=== PATIENT | female | born 1970 | race Caucasian/White ===

== ENCOUNTER 2019-02-04 18:44 | Inpatient (IN) ==
[2019-02-04] MEDS ORDERED: Ipratropium/Albuterol Neb 3 ML IH ONE (19:16)
[2019-02-04] MEDS ORDERED: methylPREDNISolone 125 MG/2 ML VIAL IVP ONE (19:16)
--- NOTE | 2019-02-04 19:25 | Emergency Department Note ---
Disposition Clinical Impression: Acute exacerbation of chronic obstructive airways disease, Ventricular tachycardia Disposition: Admitted As Inpatient Condition: Fair General Adult HPI - General Chief complaint: ED Shortness of Breath/Dyspnea Stated complaint: cough/CARLY Time Seen by Provider: 02/04/19 19:12 Source: patient Limitations: no limitations Nursing Notes Reviewed: Yes Vital Signs Reviewed: Yes - History of Present Illness Pain Scale: 8 - Related Data Home Medications Medication Instructions Recorded Confirmed Albuterol Sulfate [Albuterol 2 puff IH Q4HR 07/08/15 09/14/16 Inhaler] Alprazolam [Xanax] 1 mg PO TID 07/08/15 09/14/16 Gabapentin [Neurontin] 600 mg PO TID 07/08/15 09/14/16 Multivitamin [Flintstones] 1 tab PO QAM 07/08/15 09/14/16 Aclidinium [place] [Tudorza 1 puff IH BID 06/15/16 09/14/16 Pressair] Aspirin/Acetaminophen/Caffeine 1 tab PO BID PRN 06/15/16 09/14/16 [Excedrin Migraine Caplet] Fluticasone/Salmeterol [Advair Hfa 2 puff IH BID 06/15/16 09/14/16 115-21 Mcg Inhaler] Ipratropium/Albuterol Neb [Duoneb] 3 ml IH Q6HR 06/15/16 09/14/16 Nystatin Cream [Mycostatin Cream] 1 appl TP QID 06/15/16 09/14/16 lamoTRIgine [Lamictal] 150 mg PO BID 06/15/16 09/14/16 BuPROPion XL (24 HR) [Wellbutrin 300 mg PO QAM 09/14/16 09/14/16 Xl] L. Acidophilus/Pectin, [place] 1 cap PO QAM 09/14/16 09/14/16 [Acidophilus Probiotic Capsule] Magnesium Salicylate/Caffeine 1 tab PO BID 09/14/16 09/14/16 [Diurex Water Pills] Meloxicam [Mobic] 15 mg PO QAM 09/14/16 09/14/16 Previous Rx's Medication Instructions Recorded hydroCHLOROthiazide 12.5 mg PO DAILY #15 tablet 09/16/16 [Hydrochlorothiazide] Allergies Allergy/AdvReac Type Severity Reaction Status Date / Time No Known Allergies Allergy Verified 07/01/15 15:33 Past Medical History - Past Medical History Medical history: Reports: asthma, COPD, hyperlipidemia, other Surgical history: Reports: cholecystectomy, other Psychiatric history: Reports: anxiety, depression - Social History Smoking Status: Current every day smoker Smokeless Tobacco Status: No Alcohol use: Reports: none Drug use: Reports: none Physical Exam - General Limitations: no limitations General appearance: alert Course Vital Signs Temperature 100.5 F H 02/04/19 18:56 Pulse Rate 87 02/04/19 18:56 Respiratory Rate 18 02/04/19 18:56 Blood Pressure 144/77 02/04/19 18:56 O2 Sat by Pulse Oximetry 91 02/04/19 18:56 Temperature 100.9 F H 02/04/19 20:59 Pulse Rate 87 02/04/19 23:32 Respiratory Rate 30 02/04/19 23:32 Blood Pressure 112/49 02/04/19 23:32 O2 Sat by Pulse Oximetry 92 02/04/19 23:32 Oxygen Delivery Oxygen Delivery Nasal Cannula Medical Decision Making - Medical Records Medical records reviewed: Yes I reviewed the patient's medical records. - Lab Data Lab results reviewed: Yes I reviewed the patient's lab results. Result diagrams: 02/04/19 19:31 02/04/19 19:31 Lab Results 02/04/19 02/04/19 02/04/19 Range/Units 19:31 19:31 19:31 WBC 5.0 (4.3-11.1) K/mcL RBC 5.33 H (3.82-4.97) M/mcL Hgb 16.2 H (11.5-15.4) g/dL Hct 48.9 H (35.3-44.9) % MCV 91.7 (83.0-100.0) fL MCH 30.4 (28.0-33.3) pg MCHC 33.1 (31.6-35.5) g/dL RDW 14.5 (11.5-14.5) % Plt Count 189 (140-400) K/mcL MPV 9.9 (9.4-12.4) fL Immature Gran % 0.4 (0-4) % Seg Neutrophils % 66.3 % Lymphocytes % 22.1 % Monocytes % 10.8 % Eosinophils % 0.0 % Basophils % 0.4 % Neutrophils # 3.3 (1.6-8.9) K/mcL Lymphocytes # 1.1 (0.6-4.6) K/mcL Monocytes # 0.5 (0.0-1.3) K/mcL Eosinophils # 0.0 (0.0-0.6) K/mcL Basophils # 0.0 (0.0-0.2) K/mcL PT (9.4-12.1) Seconds INR APTT (26.0-36.0) Seconds Sodium 131 L (136-145) mEq/L Potassium 3.8 (3.5-5.1) mEq/L Chloride 99 (98-107) mEq/L Carbon Dioxide 23 (23-29) mEq/L BUN 8 (6-20) mg/dL Creatinine 0.77 (0.60-1.20) mg/dL Est GFR ( Amer) > 60 (> 60) Est GFR (Non-Af Amer) > 60 (> 60) BUN/Creatinine Ratio 10 (6-26) Glucose 111 H (70-105) mg/dL Calculated Osmolality 271 L (280-300) Lactic Acid 1.5 (0.5-2.2) mmol/L Calcium 8.5 L (8.6-10.3) mg/dL Troponin I < 0.03 (< 0.04) ng/mL B-Natriuretic Peptide (Less than 100) pg/mL TSH 1.796 (0.340-5.600) mcIU/mL Urine Color (Yellow) Urine Clarity (Clear) Urine pH (5.0-8.0) pH Units Ur Specific [place] (1.010-1.025) Urine Protein (Neg-Trace) mg/dL Urine Glucose (UA) (Normal) mg/dL Urine Ketones (Negative) mg/dL Urine Blood (Negative) Urine Nitrite (Negative) Urine Bilirubin (Negative) Urine Urobilinogen (Normal) mg/dL Ur Leukocyte Esterase (Negative) Urine Microscopic RBC (0-3) per hpf Urine Microscopic WBC (0-3) per hpf Ur Squamous Epith Cells (None-Few) per lpf Urine Bacteria (None-Few) per hpf Hyaline Casts (None-Few) per lpf Ur Culture Indicated? (NO) 02/04/19 02/04/19 02/04/19 Range/Units 19:31 19:31 22:35 WBC (4.3-11.1) K/mcL RBC (3.82-4.97) M/mcL Hgb (11.5-15.4) g/dL Hct (35.3-44.9) % MCV (83.0-100.0) fL MCH (28.0-33.3) pg MCHC (31.6-35.5) g/dL RDW (11.5-14.5) % Plt Count (140-400) K/mcL MPV (9.4-12.4) fL Immature Gran % (0-4) % Seg Neutrophils % % Lymphocytes % % Monocytes % % Eosinophils % % Basophils % % Neutrophils # (1.6-8.9) K/mcL Lymphocytes # (0.6-4.6) K/mcL Monocytes # (0.0-1.3) K/mcL Eosinophils # (0.0-0.6) K/mcL Basophils # (0.0-0.2) K/mcL PT 12.3 H (9.4-12.1) Seconds INR 1.1 APTT 33.3 (26.0-36.0) Seconds Sodium (136-145) mEq/L Potassium (3.5-5.1) mEq/L Chloride (98-107) mEq/L Carbon Dioxide (23-29) mEq/L BUN (6-20) mg/dL Creatinine (0.60-1.20) mg/dL Est GFR ( Amer) (> 60) Est GFR (Non-Af Amer) (> 60) BUN/Creatinine Ratio (6-26) Glucose (70-105) mg/dL Calculated Osmolality (280-300) Lactic Acid (0.5-2.2) mmol/L Calcium (8.6-10.3) mg/dL Troponin I (< 0.04) ng/mL B-Natriuretic Peptide 25 (Less than 100) pg/mL TSH (0.340-5.600) mcIU/mL Urine Color Yellow (Yellow) Urine Clarity Cloudy A (Clear) Urine pH 6.0 (5.0-8.0) pH Units Ur Specific [place] 1.010 (1.010-1.025) Urine Protein Negative (Neg-Trace) mg/dL Urine Glucose (UA) Normal (Normal) mg/dL Urine Ketones Negative (Negative) mg/dL Urine Blood Trace H (Negative) Urine Nitrite Positive A (Negative) Urine Bilirubin Negative (Negative) Urine Urobilinogen Normal (Normal) mg/dL Ur Leukocyte Esterase Negative (Negative) Urine Microscopic RBC 0-3 (0-3) per hpf Urine Microscopic WBC 3-5 H (0-3) per hpf Ur Squamous Epith Cells Many H (None-Few) per lpf Urine Bacteria Many H (None-Few) per hpf Hyaline Casts None Seen (None-Few) per lpf Ur Culture Indicated? NO. A (NO) - Radiology Data Radiology results reviewed: Yes I reviewed the patient's radiology results. Chest X-Ray 02/04/19 19:16 IMPRESSION: No acute abnormality visualized. D/ / Rk Pedersen MD / Rk Pedersen MD Interpreting Provider: Rk Pedersen MD - EKG Data EKG #1 EKG attestation: Yes I reviewed and interpreted this EKG. EKG results narrative: EKG shows normal sinus rhythm with ventricular rate of 91. No ST segment elevation or depression. No arrhythmia or ectopy. Critical Care Time Critical Care Time: Yes Total Critical Care Time: 45 Attestation: Critical care performed: Time is exclusive of separately billable procedures. Time includes: direct patient care, patient reassessment, coordination of patient care, interpretation of data (laboratory data, radiology data, and respiratory data), review of patient's medical records, medical consultation and documentation of patient care. Procedures included in critical care time: Procedures excluded from critical care time: Attestation Statement - Attestation Attestation: IJose MD, personally evaluated this patient and discussed their management with the resident physician. I reviewed the resident's note and agree with the documented findings, medical decision making, and plan of care. 48-year-old female presents to the emergency department with a complaint of increasing cough and shortness of breath for the past 2-3 days. Symptoms much worse today with subjective low-grade fever. She does complain of diffuse mid anterior wall chest pain with coughing or deep breathing. Small amount of white sputum. Patient is a smoker but has been unable to smoke for the past few days due to her breathing. She does have a history of COPD and uses inhalers at home. She also has a nebulizer. She does not have home oxygen. She admits to some vomiting and some diarrhea. No abdominal pain. No urinary symptoms. No GI bleed symptoms. On examination patient is a well-developed obese female in moderate respiratory distress. She is alert and oriented 3. There is no cyanosis or diaphoresis. Patient is hot to touch and temperature 102.3 at time of my exam. There is some tenderness palpation over the anterior chest wall. Breath sounds are decreased bilaterally with diffuse bilateral expiratory wheezes. Heart regular rate and rhythm. Abdomen soft and nontender with normal bowel sounds. EKG shows normal sinus rhythm with ventricular rate of 91. No ST segment elevation or depression. No arrhythmia or ectopy. Chest x-ray negative. Labs reviewed. While in the emergency department on the alarm security or surveillance monitor patient had an episode of ventricular tachycardia. This was true V. tach and was not artifact. There was a continuous run of 70 beats. Heart rate went up to 203. Patient was alert and responsive during this episode and he did not complain of any chest pain. Patient was given an amiodarone bolus and started on an amiodarone infusion. The hospitalist, Dr. Leigh, was consulted and accepted admission of the patient.
[2019-02-04] MEDS ORDERED: Ibuprofen 600 MG TABLET PO ONE (19:39)
[2019-02-04] MEDS ORDERED: 0.9 % Sodium Chloride 1,000 ML IVC ONE (19:40)
[2019-02-04 19:46] LABS: Basophils % 0.4 %; Hematocrit 48.9 % (35.3-44.9); Hemoglobin 16.2 g/dL (11.5-15.4); Immature Granulocytes % 0.4 % (0-4); Lymphocytes # 1.1 K/mcL (0.6-4.6); Lymphocytes % 22.1 %; Mean Corpuscular HGB Conc 33.1 g/dL (31.6-35.5); Mean Corpuscular Hemoglobin 30.4 pg (28.0-33.3); Mean Corpuscular Volume 91.7 fL (83.0-100.0); Mean Platelet Volume 9.9 fL (9.4-12.4); Monocytes # 0.5 K/mcL (0.0-1.3); Monocytes % 10.8 %; Neutrophils # 3.3 K/mcL (1.6-8.9); Platelet Count 189 K/mcL (140-400); Red Blood Count 5.33 M/mcL (3.82-4.97); Red Cell Distribution Width 14.5 % (11.5-14.5); Segmented Neutrophils % 66.3 %
[2019-02-04 20:04] LABS: BUN/Creatinine Ratio 10 (6-26); Blood Urea Nitrogen 8 mg/dL (6-20); Calcium 8.5 mg/dL (8.6-10.3); Carbon Dioxide 23 mEq/L (23-29); Chloride 99 mEq/L (98-107); Glucose 111 mg/dL (70-105); Osmolality,Calculated 271 (280-300); Potassium 3.8 mEq/L (3.5-5.1); Sodium 131 mEq/L (136-145); Troponin I < 0.03 ng/mL (< 0.04); eGFR For Non-African Americans > 60 (> 60)
--- NOTE | 2019-02-04 20:17 | Emergency Department Note ---
Disposition Clinical Impression: Acute exacerbation of chronic obstructive airways disease, Ventricular tachycardia Disposition: Admitted As Inpatient Condition: Fair Forms: ED Satisfaction Letter Time of Disposition: 23:06 SOB HPI - General Chief Complaint: ED Shortness of Breath/Dyspnea Stated Complaint: cough/CARLY Time Seen by Provider: 02/04/19 19:12 Source: patient Mode of arrival: ambulatory Limitations: no limitations Nursing Notes Reviewed: Yes Vital Signs Reviewed: Yes - History of Present Illness 48-year-old female presents to the emergency department complaining of shortness of breath. Patient does have history of COPD as well as asthma does use inhalers and nebulizers does not use oxygen at home. She has been smoking about a half to one pack a day but over the last 3 days since the symptoms started she has not been known to smoke as she said just does not feel very well. She does not believe she has a fever but has been complaining of chills she does not have a thermometer at home to check her temperature. She says she has had cough and congestion has not been coughing anything up. She is not been a long car rides no long plane rides no history of blood clots, hormone use, control, leg swelling, cancer diagnoses, and recent surgery. Patient denies any chest pain, nausea, vomiting, fevers. Patient otherwise is not having any complaints at this time. - Related Data Home Medications Medication Instructions Recorded Confirmed Albuterol Sulfate [Albuterol 2 puff IH Q4HR 07/08/15 09/14/16 Inhaler] Alprazolam [Xanax] 1 mg PO TID 07/08/15 09/14/16 Gabapentin [Neurontin] 600 mg PO TID 07/08/15 09/14/16 Multivitamin [Flintstones] 1 tab PO QAM 07/08/15 09/14/16 Aclidinium [place] [Tudorza 1 puff IH BID 06/15/16 09/14/16 Pressair] Aspirin/Acetaminophen/Caffeine 1 tab PO BID PRN 06/15/16 09/14/16 [Excedrin Migraine Caplet] Fluticasone/Salmeterol [Advair Hfa 2 puff IH BID 06/15/16 09/14/16 115-21 Mcg Inhaler] Ipratropium/Albuterol Neb [Duoneb] 3 ml IH Q6HR 06/15/16 09/14/16 Nystatin Cream [Mycostatin Cream] 1 appl TP QID 06/15/16 09/14/16 lamoTRIgine [Lamictal] 150 mg PO BID 06/15/16 09/14/16 BuPROPion XL (24 HR) [Wellbutrin 300 mg PO QAM 09/14/16 09/14/16 Xl] L. Acidophilus/Pectin, [place] 1 cap PO QAM 09/14/16 09/14/16 [Acidophilus Probiotic Capsule] Magnesium Salicylate/Caffeine 1 tab PO BID 09/14/16 09/14/16 [Diurex Water Pills] Meloxicam [Mobic] 15 mg PO QAM 09/14/16 09/14/16 Previous Rx's Medication Instructions Recorded hydroCHLOROthiazide 12.5 mg PO DAILY #15 tablet 09/16/16 [Hydrochlorothiazide] Allergies Allergy/AdvReac Type Severity Reaction Status Date / Time No Known Allergies Allergy Verified 07/01/15 15:33 All systems ED: reviewed and negative except as stated. Review of Systems: As Per HPI Past Medical History - Past Medical History Attestation: Yes The following information was validated with the patient. Source: patient Medical history: Reports: asthma, COPD, hyperlipidemia, other Surgical history: Reports: cholecystectomy, other Psychiatric history: Reports: anxiety, depression - Social History Smoking Status: Current every day smoker Smokeless Tobacco Status: No Alcohol use: Reports: none Drug use: Reports: none Physical Exam - General Limitations: no limitations General appearance: alert - Head Head exam: atraumatic, normocephalic, normal inspection - Eye Eye exam: Present: normal appearance, PERRL, EOMI - ENT ENT exam: normal exam, normal oropharynx, mucous membranes moist - Neck Neck exam: Present: normal inspection, full ROM, trachea midline - Chest Chest inspection: Present: normal inspection, symmetric chest wall rise - Respiratory Respiratory exam: Present: wheezes. Absent: respiratory distress, stridor, accessory muscle use, prolonged expiratory phase - Cardiovascular Cardiovascular exam: Present: regular rate, normal rhythm, normal heart sounds - Abdominal Exam Abdominal exam: Present: soft, Non-Tender, normal bowel sounds. Absent: tenderness, distention, guarding, rebound, rigidity - Extremities Exam Extremities exam: Present: normal inspection, full ROM, pedal edema (1+ bilaterally). Absent: tenderness - Back Exam Back exam: Present: normal inspection, full ROM. Absent: tenderness - Neurological Exam Neurological exam: Present: alert, oriented X3 - Skin Skin exam: Present: warm, dry, intact, normal color Course Course Narrative: Patient does have a fever here and exam she is mildly tachycardic she is mildly short of breath she does not have increasing respirations. Patient does not meet severe sepsis at this time. We will just get a chest x-ray and basic labs we have patient DuoNeb's as well as IV steroids. Patient okay with this plan. Also given Motrin for fever. Disposition pending results - Reevaluation(s) Reevaluation #1: Patient had approximately 70-80 beats of ventricular tachycardia this was shown on the monitor. Patient according to family during this time was awake and alert and talking they just noticed the machine was going off. We walked in the room her auction saturations were down in the 80s so we increased her oxygen to 4 L. Patient stable at this time. We will add amiodarone to the patient at this time. Time: 20:23 Vital Signs Temperature 100.5 F H 02/04/19 18:56 Pulse Rate 87 02/04/19 18:56 Respiratory Rate 18 02/04/19 18:56 Blood Pressure 144/77 02/04/19 18:56 O2 Sat by Pulse Oximetry 91 02/04/19 18:56 Temperature 102.3 F H 02/04/19 19:37 Pulse Rate 96 02/04/19 19:37 Respiratory Rate 22 02/04/19 19:37 Blood Pressure 127/66 02/04/19 19:37 O2 Sat by Pulse Oximetry 93 02/04/19 19:37 Oxygen Delivery Oxygen Delivery Room Air Shortness of Breath/Dyspnea - MDM Narrative Medical decision making narrative: 48-year-old female presented to the emergency department with shortness of breath. Does have history of COPD. X-ray did not show any acute findings did not show a pneumonia but due to patient having COPD this is probably an acute exacerbation either viral or early bacterial so we will treat patient with antibiotics. Patient did have an episode of ventricular tachycardia while here so we did start amiodarone by getting a bolus first. Patient has not had any more runs of V. tach. Patient was alert and oriented during this entire event according to family. Due to the ventricular tachycardia we chose to give doxycycline as an antibiotic does not want to stay away from anything that could prolong the QT. Patient is okay with this plan. Blood cultures are pending. I spoke with the hospitalist Dr. Garrett who agreed to admit the patient to their service. Patient admitted in stable condition. Chest X-Ray 02/04/19 19:16 IMPRESSION: No acute abnormality visualized. D/ / Rk Pedersen MD / Rk Pedersen MD Interpreting Provider: Rk Pedersen MD - Medical Records Medical records reviewed: Yes I reviewed the patient's medical records. - Lab Data Lab results reviewed: Yes I reviewed the patient's lab results. Result diagrams: 02/04/19 19:31 02/04/19 19:31 Lab Results 02/04/19 02/04/19 02/04/19 Range/Units 19:31 19:31 19:31 WBC 5.0 (4.3-11.1) K/mcL RBC 5.33 H (3.82-4.97) M/mcL Hgb 16.2 H (11.5-15.4) g/dL Hct 48.9 H (35.3-44.9) % MCV 91.7 (83.0-100.0) fL MCH 30.4 (28.0-33.3) pg MCHC 33.1 (31.6-35.5) g/dL RDW 14.5 (11.5-14.5) % Plt Count 189 (140-400) K/mcL MPV 9.9 (9.4-12.4) fL Immature Gran % 0.4 (0-4) % Seg Neutrophils % 66.3 % Lymphocytes % 22.1 % Monocytes % 10.8 % Eosinophils % 0.0 % Basophils % 0.4 % Neutrophils # 3.3 (1.6-8.9) K/mcL Lymphocytes # 1.1 (0.6-4.6) K/mcL Monocytes # 0.5 (0.0-1.3) K/mcL Eosinophils # 0.0 (0.0-0.6) K/mcL Basophils # 0.0 (0.0-0.2) K/mcL Sodium 131 L (136-145) mEq/L Potassium 3.8 (3.5-5.1) mEq/L Chloride 99 (98-107) mEq/L Carbon Dioxide 23 (23-29) mEq/L BUN 8 (6-20) mg/dL Creatinine 0.77 (0.60-1.20) mg/dL Est GFR ( Amer) > 60 (> 60) Est GFR (Non-Af Amer) > 60 (> 60) BUN/Creatinine Ratio 10 (6-26) Glucose 111 H (70-105) mg/dL Calculated Osmolality 271 L (280-300) Lactic Acid 1.5 (0.5-2.2) mmol/L Calcium 8.5 L (8.6-10.3) mg/dL Troponin I < 0.03 (< 0.04) ng/mL B-Natriuretic Peptide (Less than 100) pg/mL 02/04/19 Range/Units 19:31 WBC (4.3-11.1) K/mcL RBC (3.82-4.97) M/mcL Hgb (11.5-15.4) g/dL Hct (35.3-44.9) % MCV (83.0-100.0) fL MCH (28.0-33.3) pg MCHC (31.6-35.5) g/dL RDW (11.5-14.5) % Plt Count (140-400) K/mcL MPV (9.4-12.4) fL Immature Gran % (0-4) % Seg Neutrophils % % Lymphocytes % % Monocytes % % Eosinophils % % Basophils % % Neutrophils # (1.6-8.9) K/mcL Lymphocytes # (0.6-4.6) K/mcL Monocytes # (0.0-1.3) K/mcL Eosinophils # (0.0-0.6) K/mcL Basophils # (0.0-0.2) K/mcL Sodium (136-145) mEq/L Potassium (3.5-5.1) mEq/L Chloride (98-107) mEq/L Carbon Dioxide (23-29) mEq/L BUN (6-20) mg/dL Creatinine (0.60-1.20) mg/dL Est GFR ( Amer) (> 60) Est GFR (Non-Af Amer) (> 60) BUN/Creatinine Ratio (6-26) Glucose (70-105) mg/dL Calculated Osmolality (280-300) Lactic Acid (0.5-2.2) mmol/L Calcium (8.6-10.3) mg/dL Troponin I (< 0.04) ng/mL B-Natriuretic Peptide 25 (Less than 100) pg/mL - Radiology Data Radiology results reviewed: Yes I reviewed the patient's radiology results. - EKG Data EKG attestation: Yes I reviewed and interpreted this EKG. EKG results narrative: EKG done at 1916 review myself and attending shows sinus rhythm at a rate of 91, para 126, QRS 85, QTC 41. There is no acute ST changes no acute T-wave changes no other signs of ischemia. No hypertrophy, heart, heart block. No WPW/[place]/HOCM. Unchanged when compared with old EKG done 09/14/16
[2019-02-04] MEDS ORDERED: Amiodarone Premix 360 MG/200 ML BAG IVC ONE (20:23)
[2019-02-04] MEDS ORDERED: Amiodarone Premix 150 MG/100 ML BAG IVPB ONE (20:23)
[2019-02-04 20:41] LABS: INR 1.1; Prothrombin Time 12.3 Seconds (9.4-12.1)
[2019-02-04 20:44] LABS: Activated Partial Thrombo Time 33.3 Seconds (26.0-36.0)
[2019-02-04 21:02] LABS: Thyroid Stimulating Hormone 1.796 mcIU/mL (0.340-5.600)
[2019-02-04] MEDS ORDERED: Doxycycline 100 MG in 0.9 % Sodium Chloride Mini Bag 100 ML IVPB ONE (22:02)
[2019-02-04 22:44] LABS: Bilirubin,Urine Negative (Negative); Blood,Urine Trace (Negative); Clarity,Urine Cloudy (Clear); Color,Urine Yellow (Yellow); Glucose,Urine (UA) Normal (Normal); Ketones,Urine Negative (Negative); Leukocyte Esterase,Urine Negative (Negative); Nitrite,Urine Positive (Negative); Protein,Urine Negative (Neg-Trace); Urobilinogen,Urine Normal (Normal)
[2019-02-04 22:47] LABS: Bacteria,Urine Many per hpf (None-Few); Hyaline Casts,Urine None Seen per lpf (None-Few); RBC,Urine 0-3 per hpf (0-3); Squamous Epithelial Cell,Urine Many per lpf (None-Few)
[2019-02-05] MEDS ORDERED: Naloxone 0.4 MG/ML INJ IVP PRN ×2 (01:08→06:54)
[2019-02-05] MEDS ORDERED: Dextrose Gel 15 GM/37.5 ML TUBE PO PRN ×2 (01:14)
[2019-02-05] MEDS ORDERED: D5% in Water 1,000 ML IVC PRN (01:14)
[2019-02-05] MEDS ORDERED: *HR* Dextrose 50 % in Water (Syg) 50 ML SYRINGE IVP PRN (01:14)
[2019-02-05] MEDS ORDERED: Insulin LISPRO 300 UNITS/3 ML VIAL SQ SCH (01:15)
--- NOTE | 2019-02-05 01:17 | Internal Med History&Physical ---
<Timothy Bradford - Last Filed: 02/05/19 01:45> Date of Encounter: 02/05/19 Time of Encounter: 01:13 Internal Medicine - H&P: HPI Chief complaint: Ventriular Tachycardia Admitted From: Home Plans for Post Hospital Care: Home History of present illness: Ms. Munoz is a 48 year old female with a history of COPD. Patient presents emergency Department with reports of increased shortness of breath and work of breathing. Patient also states that she has had a fever as high as 102. Patient also reports that she has had some nausea, vomiting and diarrhea over the past couple of days. Patient states that she has breathing treatments and inhalers at home however these have not been helping. Patient denies any chest pain but does state when she coughs she does have some chest pain. The pain is only when she is coughing. Patient states that is mildly productive. Patient states that she has not really been around anyone else has been sick. Patient had an episode in the emergency department where she had a run of ventricular tachycardia. Patient states that she has never had any previous cardiac arrhythmias or any heart issues. Patient states that the only medical problems that she has is her COPD and anxiety and depression. Patient denies any use of oxygen but states she wears bipap at night. Past Med Surg Social Fam HX - Past Medical History Medical history: asthma, COPD, hyperlipidemia, other Additional medical history: sleep apnea, neuropathy, anemia Psychiatric history: anxiety, depression - Past Surgical History Surgical History: cholecystectomy, other Additional surgical history: ACDF, Hysterectomy - Social History Smoking Status: Current every day smoker Smokeless Tobacco Status: No Alcohol use: none Drug use: none - Family History Mother Living Status: Still Living Hx Family Cardiac Disorders: Yes Hx Family Respiratory Disorders: No Hx Family Cancer: No Hx Family GI Disorders: No Hx Family Endocrine Disorder: No Hx Family Neuromuscular Disorders: No Hx Family Neurologic Disorders: Yes (Dementia early stages) Hx Family HEENT Disorders: No Hx Family Autoimmune Disorders: No Internal Medicine - H&P: Meds Multivitamin [Flintstones] 1 tab PO QAM 07/08/15 [History] Aspirin/Acetaminophen/Caffeine [Excedrin Migraine Caplet] 1 tab PO BID PRN 06/15/16 [History] Fluticasone/Salmeterol [Advair Hfa 115-21 Mcg Inhaler] 2 puff IH BID 06/15/16 [History] Ipratropium/Albuterol Neb [Duoneb] 3 ml IH Q6HR 06/15/16 [History] Nystatin Cream [Mycostatin Cream] 1 appl TP QID 06/15/16 [History] lamoTRIgine [Lamictal] 150 mg PO BID 06/15/16 [History] BuPROPion XL (24 HR) [Wellbutrin Xl] 300 mg PO QAM 09/14/16 [History] hydroCHLOROthiazide [Hydrochlorothiazide] 12.5 mg PO DAILY #15 tablet 09/16/16 [Rx] Abilify PO 02/05/19 [History] Hydrochlorothiazide PO DAILY 02/05/19 [History] Montelukast [Singulair] 10 mg PO DAILY 02/05/19 [History] clonazePAM [Klonopin] 1 mg PO BID PRN 02/05/19 [History] Allergy/AdvReac Type Severity Reaction Status Date / Time No Known Allergies Allergy Verified 07/01/15 15:33 All Systems PM: A 10-system review of systems was performed and is negative for pertinent find ings except as documented above in the HPI. - Cardiovascular Cardiovascular ROS IM: no chest pain - Respiratory Respiratory: cough, dyspnea, pain with cough, no hemoptysis - Gastrointestinal Gastrointestinal: diarrhea, vomiting - Constitutional Vitals: Temp Pulse Resp BP Pulse Ox 100.9 F H 83 19 123/74 95 02/04/19 20:59 02/05/19 00:43 02/05/19 00:43 02/05/19 00:43 02/05/19 00:43 General appearance: Present: A&O X 3, no acute distress Exam: Patient was alert and oriented in no acute distress. - Head Head exam: Present: atraumatic, normocephalic - Eye Eye exam: Present: EOMI, normal appearance - Neck Neck exam general surgery: Present: full ROM, normal inspection, trachea midline - Respiratory Respiratory exam: Present: wheezes (Mild scattered wheezes.) Additional comments: Patient is on supplemental oxygen at the time of exam. - Cardiovascular Cardiovascular exam: Present: RRR, +S1, +S2 - GI/Abdominal GI/Abdominal exam: Present: normal bowel sounds, soft. Absent: tenderness - Extremities Exam Extremities exam: Present: normal inspection. Absent: pedal edema, tenderness - Back Exam Back exam: Present: full ROM - Neurological Exam Neurological exam: Present: alert, oriented X3, no focal deficits - Psychiatric Psychiatric exam: Present: normal affect, normal mood - Skin Skin exam: Present: dry, intact, warm Internal Med - H&P Results - Labs CBC & Chem 7: 02/04/19 19:31 02/04/19 19:31 Labs: Short CBC 02/04/19 Range/Units 19:31 WBC 5.0 (4.3-11.1) K/mcL Hgb 16.2 H (11.5-15.4) g/dL Hct 48.9 H (35.3-44.9) % Plt Count 189 (140-400) K/mcL Neutrophils # 3.3 (1.6-8.9) K/mcL BMP 02/04/19 19:31 Sodium 131 L Potassium 3.8 Chloride 99 Carbon Dioxide 23 BUN 8 Creatinine 0.77 Glucose 111 H Calcium 8.5 L Cardiac Enzymes 02/04/19 Range/Units 19:31 Troponin I < 0.03 (< 0.04) ng/mL Urine 02/04/19 Range/Units 22:35 Urine Color Yellow (Yellow) Urine Clarity Cloudy A (Clear) Urine pH 6.0 (5.0-8.0) pH Units Ur Specific [place] 1.010 (1.010-1.025) Urine Protein Negative (Neg-Trace) mg/dL Urine Glucose (UA) Normal (Normal) mg/dL - Impressions ITS Impressions Chest X-Ray 02/04/19 19:16 IMPRESSION: No acute abnormality visualized. D/ / Rk Pedersen MD / Rk Pedersen MD Interpreting Provider: Rk Pedersen MD - Diagnostic Studies Chest x-ray Status: image reviewed by me - Assessment and Plan (1) Acute exacerbation of chronic obstructive airways disease Current Visit: Yes Status: Acute Assessment and plan: Patient initially presented for appeared to be a COPD exacerbation. Patient had been having increased shortness of breath and cough. Been using her nebulized breathing treatments of new relief. Patient received DuoNeb and steroids in the emergency department. Patient has improved. Patient was brought to the ICU secondary to the patient having a run of ventricular tachycardia. Patient will have due nebs when necessary as well as oral steroids ordered. Patient states that she wears BiPAP at home at night. BiPAP has been ordered at bedtime and when necessary for the patient. There is no obvious evidence of pneumonia on chest x-ray however due to the patient COPD exacerbation they felt that this is potentially likely an early pneumonia as she was started on doxycycline to avoid any prolongation of patient's QT due to her having a recent episode of vent ricular tachycardia. We will continue with the doxycycline here. (2) Ventricular tachycardia Current Visit: Yes Status: Acute Assessment and plan: This is not the primary reason for the patient coming to the hospital this evening however while she was here in the emergency department the monitor picked up that the patient was in ventricular tachycardia. Patient was started on amiodarone. Patient was given a bolus and was started on 1 mg/m. This will go for 6 hours and the patient be transitioned 0.5/m for the next 18 hours. There is reported that the patient was alert and responsive during the episode of ventricular tachycardia. Cardiology will be consulted. (3) Hyperglycemia Current Visit: Yes Status: Acute Assessment and plan: Patient does not have a known history of diabetes however her blood glucose here is 285. Low-dose sliding scale insulin has been ordered. I have also ordered an A1c. (4) DVT prophylaxis Current Visit: Yes Status: Acute Assessment and plan: Subcutaneous heparin has been ordered. - Time Spent With Patient Total time spent is greater than 50% in coordination of care (as documented) at patient's floor/unit and/or counseling patient: <Luis Leigh - Last Filed: 02/05/19 06:11> Date of Encounter: 02/05/19 Internal Medicine - H&P: HPI History of present illness: Ms. Munoz is a 48 year old female All Systems PM: A 10-system review of systems was performed and is negative for pertinent findings except as documented above in the HPI. - Constitutional Vitals: Temp Pulse Resp BP Pulse Ox 98.1 F 56 20 99/62 95 02/05/19 03:50 02/05/19 05:00 02/05/19 05:00 02/05/19 05:00 02/05/19 05:00 Internal Med - H&P Results - Labs CBC & Chem 7: 02/04/19 19:31 02/04/19 19:31 Labs: Short CBC 02/04/19 Range/Units 19:31 WBC 5.0 (4.3-11.1) K/mcL Hgb 16.2 H (11.5-15.4) g/dL Hct 48.9 H (35.3-44.9) % Plt Count 189 (140-400) K/mcL Neutrophils # 3.3 (1.6-8.9) K/mcL BMP 02/04/19 19:31 Sodium 131 L Potassium 3.8 Chloride 99 Carbon Dioxide 23 BUN 8 Creatinine 0.77 Glucose 111 H Calcium 8.5 L Cardiac Enzymes 02/04/19 04 Range/Units 19:31 02:03 Troponin I < 0.03 < 0.03 (< 0.04) ng/mL Urine 02/04/19 Range/Units 22:35 Urine Color Yellow (Yellow) Urine Clarity Cloudy A (Clear) Urine pH 6.0 (5.0-8.0) pH Units Ur Specific [place] 1.010 (1.010-1.025) Urine Protein Negative (Neg-Trace) mg/dL Urine Glucose (UA) Normal (Normal) mg/dL - Impressions ITS Impressions Chest X-Ray 02/04/19 19:16 IMPRESSION: No acute abnormality visualized. D/ / Rk Pedersen MD / Rk Pedersen MD Interpreting Provider: Rk Pedersen MD - Time Spent With Patient Total time spent is greater than 50% in coordination of care (as documented) at patient's floor/unit and/or counseling patient: - Attending Attestation Performed a history and physical examination of the patient and discussed her management with a residence I reviewed the resident's note and agree with the assessment and plan. Patient is a 48-year-old female with a past medical history of COPD who presented to the ED with complaints of worsening shortness of breath and wheezing. While in the ED patient had 70 beats of V. tach. A reportedly asymptomatic during the event. She was started on amiodarone drip. Admitted for COPD exacerbation. We will monitor and continue amiodarone. Cardiology consult for the morning.
[2019-02-05] MEDS: Insulin LISPRO 300 UNITS/3 ML VIAL SQ SCH ×5 (01:53→20:06)
[2019-02-05] MEDS: Amiodarone Premix 360 MG/200 ML BAG IVC SCH ×2 (01:53→14:00)
[2019-02-05] MEDS: *HR* Heparin 5,000 UNIT/ML VIAL SQ SCH ×2 (05:35→18:25)
[2019-02-05] MEDS: Doxycycline 100 MG in 0.9 % Sodium Chloride Mini Bag 100 ML IVPB SCH ×2 (05:36→18:25)
[2019-02-05 06:10] LABS: Basophils % 0.3 %; Hematocrit 48.6 % (35.3-44.9); Hemoglobin 15.9 g/dL (11.5-15.4); Immature Granulocytes % 0.5 % (0-4); Lymphocytes # 0.8 K/mcL (0.6-4.6); Lymphocytes % 20.9 %; Mean Corpuscular HGB Conc 32.7 g/dL (31.6-35.5); Mean Corpuscular Hemoglobin 30.5 pg (28.0-33.3); Mean Corpuscular Volume 93.3 fL (83.0-100.0); Mean Platelet Volume 10.1 fL (9.4-12.4); Monocytes # 0.3 K/mcL (0.0-1.3); Platelet Count 189 K/mcL (140-400); Red Blood Count 5.21 M/mcL (3.82-4.97); Red Cell Distribution Width 14.6 % (11.5-14.5); Segmented Neutrophils % 71.3 %
[2019-02-05 06:11] LABS: Neutrophils # 2.9 K/mcL (1.6-8.9)
[2019-02-05 06:25] LABS: Prothrombin Time 11.5 Seconds (9.4-12.1)
[2019-02-05 06:30] LABS: BUN/Creatinine Ratio 13 (6-26); Blood Urea Nitrogen 10 mg/dL (6-20); Calcium 8.3 mg/dL (8.6-10.3); Carbon Dioxide 23 mEq/L (23-29); Chloride 105 mEq/L (98-107); Glucose 297 mg/dL (70-105); Osmolality,Calculated 292 (280-300); Sodium 136 mEq/L (136-145); eGFR For Non-African Americans > 60 (> 60)
[2019-02-05 06:32] LABS: Platelet Estimate Normal (Normal)
[2019-02-05 08:15] LABS: Estimated Average Glucose 134 mg/dl; Hemoglobin A1C 6.3 %
[2019-02-05] MEDS: Multivit/Ca/Min/Fe/FA 1 TAB TABLET PO SCH (08:48)
[2019-02-05] MEDS: hydroCHLOROthiazide 25 MG TABLET PO SCH (08:48)
[2019-02-05] MEDS: predniSONE 20 MG TABLET PO SCH (08:48)
[2019-02-05] MEDS: BuPROPion XL (24 HR) 150 MG TABLET PO SCH (08:48)
[2019-02-05] MEDS: lamoTRIgine 100 MG TABLET PO SCH ×2 (08:48→20:07)
[2019-02-05] MEDS: Nystatin Cream 15 GM TUBE TP SCH ×4 (08:49→20:07)
--- NOTE | 2019-02-05 08:50 | Cardiology Consult Note ---
Date of Encounter: 02/05/19 Time of Encounter: 08:48 Assessment and Plan (1) Sustained VT (ventricular tachycardia) Current Visit: Yes Status: Acute single episode, asymptomatic, no HD compromise, no history, lytes ok, QTc wnl, neg trop, need to r/o ischemia. - complete amio drip per protocol - add lopressor 25 bid - TTE - will need LHC - will need EP and possible ICD before discharge based on TTE and LHC (2) Chest pain Current Visit: No Status: Acute pleuritic. no ho exertional angina. - will need LHC given VT Qualifiers: Chest pain type: chest pain on breathing Qualified Code(s): R07.1 - Chest pain on breathing; R07.81 - Pleurodynia (3) Acute exacerbation of chronic obstructive airways disease Current Visit: Yes Status: Acute management per primary team. r/o flu. (4) Depression Current Visit: Yes Status: Chronic Qualifiers: Depression Type: unspecified Qualified Code(s): F32.9 - Major depressive disorder, single episode, unspecified (5) Hyperglycemia Current Visit: Yes Status: Acute on insulin. management per primary team Discussion w patient/family: The assessment and plan as outlined above was discussed with the patient and/or family members who expressed understanding and agreement. All questions were ans wered. Thank you for involving us in the care of your patient. Please call with any questions. History of Present Illness Consult date: 02/05/19 Requesting physician: Luis Leigh Consult reason: VT Chief complaint: dyspnea, fever History of present illness: Ms. Munoz is a 48 year old female ho COPD, JENIFER, depression, HLD. P/w several days of spastic cough, dyspnea, pleuritic chest pain with fever. Imp COPD exacerbation. Consulted for single episode of asymptomatic sustained VT (>30", no axis change with minor morphology variation, rate 190s-210s, pul Ox rate 110s with normal waveform, personally reviewed tracing) on monitor in ED BP drop, amio bolus and drip per protocol. No recurrence. Remote ho skipping beats. No syncope, recurrent dizziness, exertional chest pain, LE edema. Baseline limited activity. ECG [id number] 19:16 NSR, QTc 401, QRS 73, no ischemic changes trop negative, BNP 25, TSH 1.8, K 3.8, Mg pending, UA + TTE pending home on wellbutrin, lamotrigine, abilify Past Med Surg Social Fam HX - Past Medical History Medical history: asthma, COPD, hyperlipidemia, other Additional medical history: sleep apnea, neuropathy, anemia Psychiatric history: anxiety, depression - Past Surgical History Surgical History: cholecystectomy, other Additional surgical history: ACDF, Hysterectomy - Social History Smoking Status: Current every day smoker Smokeless Tobacco Status: No Alcohol use: none Drug use: none - Family History Mother Living Status: Still Living Hx Family Cardiac Disorders: Yes Hx Family Respiratory Disorders: No Hx Family Cancer: No Hx Family GI Disorders: No Hx Family Endocrine Disorder: No Hx Family Neuromuscular Disorders: No Hx Family Neurologic Disorders: Yes (Dementia early stages) Hx Family HEENT Disorders: No Hx Family Autoimmune Disorders: No Medications and Allergies Multivitamin [Flintstones] 1 tab PO QAM 07/08/15 [History] Fluticasone/Salmeterol [Advair Hfa 115-21 Mcg Inhaler] 2 puff IH BID 06/15/16 [History] Ipratropium/Albuterol Neb [Duoneb] 3 ml IH Q6HR 06/15/16 [History] lamoTRIgine [Lamictal] 150 mg PO BID 06/15/16 [History] BuPROPion XL (24 HR) [Wellbutrin Xl] 300 mg PO QAM 09/14/16 [History] Aripiprazole [Abilify] 15 mg PO DAILY 02/05/19 [History] Montelukast [Singulair] 10 mg PO DAILY 02/05/19 [History] hydroCHLOROthiazide [Hydrochlorothiazide] 25 mg PO DAILY 02/05/19 [History] traZODone [TraZODone] 50 mg PO HS PRN 02/05/19 [History] Allergy/AdvReac Type Severity Reaction Status Date / Time No Known Allergies Allergy Verified 07/01/15 15:33 All Systems Review: The remainder of the systems were reviewed and are negative - Constitutional Constitutional: fever(s) - Cardiovascular Cardiovascular: as per HPI - Respiratory Respiratory: cough, dyspnea - Psychiatric Psychiatric: depression Physical Examination Vital Signs, Last 4 Hours Temp Pulse Resp BP Pulse Ox 02/05/19 08:11 98.3 F 02/05/19 08:00 71 20 114/69 94 04/15/19 07:00 59 18 103/60 95 02/05/19 06:00 63 20 120/69 95 02/05/19 05:00 56 20 99/62 95 Other: General: NAD, AAO, cogent HEENT: anicteric Neck: no JVD, no bruits Chest: coarse BS B/L, scattered rhonchi, no W/C Heart: RR, S1/S2, no S3/S4, no M/G/R Abdominal: BS +, soft, ND, NT Peripheral Pulses: radial pulse 2+ B/L, DP 2+ B/L Skin/Extremities: no cyanosis, no LE edema Neurological: grossly non-focal. Results 02/05/19 06:00 02/05/19 06:00 Lab Results 02/04/19 02/04/19 02/04/19 19:31 19:31 19:31 WBC 5.0 Hgb 16.2 H Hct 48.9 H Plt Count 189 INR APTT Sodium 131 L Potassium 3.8 Chloride 99 Carbon Dioxide 23 BUN 8 Creatinine 0.77 Glucose 111 H Calcium 8.5 L Troponin I < 0.03 B-Natriuretic Peptide 25 TSH 1.796 02/04/19 02/05/19 02/05/19 19:31 02:03 06:00 WBC 4.0 L Hgb 15.9 H Hct 48.6 H Plt Count 189 INR 1.1 APTT 33.3 Sodium Potassium Chloride Carbon Dioxide BUN Creatinine Glucose Calcium Troponin I < 0.03 B-Natriuretic Peptide TSH 02/05/19 02/05/19 02/05/19 06:00 06:00 06:00 WBC Hgb Hct Plt Count INR 1.0 APTT Sodium 136 Potassium 4.0 Chloride 105 Carbon Dioxide 23 BUN 10 Creatinine 0.75 Glucose 297 H Calcium 8.3 L Troponin I < 0.03 B-Natriuretic Peptide TSH - Imaging and Cardiology Chest Xray: report reviewed Echo: pending Other Results: Tele reviewed - EKG Interpretation EKG results cardiology: personally reviewed, normal ECG Consult Discharge Plan - Plan Referrals: Yfn Presley MD [Primary Care Provider] -
[2019-02-05] MEDS: Ipratropium/Albuterol Neb 3 ML IH PRN (09:39)
--- NOTE | 2019-02-05 16:43 | Electrocardiograph Report ---
[address] [address] Test Date: 2019-02-04 Pat Name: Aishwarya Munoz Department: [id number] Room: 02 Gender: F [employer]: : 1970 Requested By: Jose Fontenot Order Number: [id number] Reading MD: Aram Sterling Measurements Intervals [place] Rate: 91 P: 55 MA: 126 QRS: 73 QRSD: 85 T: 22 QT: 326 QTc: 401 Interpretive Statements Sinus rhythm Low voltage, precordial leads Electronically Signed On 02-05-2019 16:41:22 EDT by Aram Sterling
--- NOTE | 2019-02-05 19:35 | Internal Med Progress Note ---
Hospitalist Progress Note - Encounter Date of Encounter: 02/05/19 Time of Encounter: 09:00 - Subjective Interval History: Patient is still complaining subjective fever. No shortness of breath. Mild cough. Complain of sore throat. Denies dizziness/lightheaded but said she has dizziness when she has palpitation. - Exam Vitals: Temp Pulse Resp BP Pulse Ox 97.4 F L 67 18 130/81 94 02/05/19 16:53 02/05/19 18:00 02/05/19 18:00 02/05/19 18:00 02/05/19 18:00 Exam: Pt is AAO x 3, in NAD HEENT: NC/AT, PERRL Neck: Supple, no JVD, no LAD, no tonsil enlargement or pharyngeal erythema Lungs: CTA b/l Heart: S1S2, RRR Abd: Soft, nontender, BS present Ext: ROM wnl, no pedal edema Neuro: No focal deficit - Assessment and Plan (1) Morbid obesity Current Visit: Yes Status: Acute Assessment and Plan: Needed the lifestyle modification as outpatient (2) Acute exacerbation of chronic obstructive airways disease Current Visit: Yes Status: Acute Assessment and Plan: Patient has no wheezing or shortness of breasts when I saw her. No fever but feels subjective fever. - Continue COPD exacerbation treatment - Continue doxycycline for possible early pneumonia as patient has a fever in ER - Flu test negative - Follow up blood culture results - Rapid strep and respiratory viral panel (3) DVT prophylaxis Current Visit: Yes Status: Acute Assessment and Plan: Heparin SC (4) Hyperglycemia Current Visit: Yes Status: Acute Assessment and Plan: Patient was found hypoglycemia in ER. Hemoglobin A1c 6.1. Consider pre- diabetic - As patient is on steroid, will cover patient with sliding scale insulin (5) Sustained VT (ventricular tachycardia) Current Visit: Yes Status: Acute Assessment and Plan: Etiology is undetermined. Cardiology consult appreciated. - Continue cardiac monitoring - Continue amiodarone drip - Unremarkable Echo result - Per cardiology, plan for [facility]. May need EP or ICD before discharge (6) Chest pain Current Visit: No Status: Acute Assessment and Plan: Patient is chest pain-free at this point. Troponin negative x5 (7) Hypertension Current Visit: No Status: Acute Assessment and Plan: Continue home medications - Time Spent with Patient Total time spent is greater than 50% in coordination of care (as documented) at patient's floor/unit and/or counseling patient: 40 minutes Greater than 35 minutes Plan of Care Discussed with: patient Internal Medicine: Result - Labs CBC & Chem 7: 02/05/19 06:00 02/05/19 06:00 Labs: Short CBC 02/04/19 02/05/19 Range/Units 19:31 06:00 WBC 5.0 4.0 L (4.3-11.1) K/mcL Hgb 16.2 H 15.9 H (11.5-15.4) g/dL Hct 48.9 H 48.6 H (35.3-44.9) % Plt Count 189 189 (140-400) K/mcL Neutrophils # 3.3 2.9 (1.6-8.9) K/mcL BMP 02/04/19 02/05/19 19:31 06:00 Sodium 131 L 136 Potassium 3.8 4.0 Chloride 99 105 Carbon Dioxide 23 23 BUN 8 10 Creatinine 0.77 0.75 Glucose 111 H 297 H Calcium 8.5 L 8.3 L Cardiac Enzymes 02/04/19 02/05/19 02/05/19 Range/Units 19:31 02:03 06:00 Troponin I < 0.03 < 0.03 < 0.03 (< 0.04) ng/mL 02/05/19 02/05/19 Range/Units 10:02 13:53 Troponin I < 0.03 < 0.03 (< 0.04) ng/mL Urine 02/04/19 Range/Units 22:35 Urine Color Yellow (Yellow) Urine Clarity Cloudy A (Clear) Urine pH 6.0 (5.0-8.0) pH Units Ur Specific [place] 1.010 (1.010-1.025) Urine Protein Negative (Neg-Trace) mg/dL Urine Glucose (UA) Normal (Normal) mg/dL - ABG Interpretation ABG results: PT/INR, D-dimer PT 11.5 Seconds (9.4-12.1) 02/05/19 06:00 - Impressions Impressions Chest X-Ray 02/04/19 19:16 IMPRESSION: No acute abnormality visualized. D/ / Rk Pedersen MD / Rk Pedersen MD Interpreting Provider: Rk Pedersen MD Echocardiogram 02/05/19 09:19 Impressions: LVEF 65%. Normal LV chamber size, wall thickness and function. Grossly normal right ventricular structure and function. No evidence of pulmonary hypertension. No significant valvular dysfunction. Left Ventricular Wall Motion: Rest Echo Findings All wall segments showed normal motion. Findings: Study Quality * Technically adequate exam. ECG Findings * Normal sinus rhythm. Left Ventricle * LVEF 65%. * Normal LV chamber size, wall thickness and function. Right Ventricle * Grossly normal right ventricular structure and function. Left Atrium * Mildly dilated left atrium. Right Atrium * Normal right atrial size. Aortic Valve * Aortic valve not well visualized. * No aortic regurgitation. * No aortic stenosis. Mitral Valve * Normal mitral valve structure and function. * No mitral regurgitation. * No mitral stenosis. Tricuspid Valve * Normal tricuspid valve structure and function. * Trace tricuspid regurgitation. * No evidence of pulmonary hypertension. Pulmonic Valve * Pulmonic valve is not well visualized. * No pulmonic regurgitation. Aorta * Normally sized aortic root. Pericardium * The pericardium appears normal. IVC * Grossly normal IVC dimensions and inspiratory collapse. Pulmonary Artery * Pulmonary artery not well visualized. Consult Discharge Plan - Plan Referrals: Yfn Presley MD [Primary Care Provider] - ____ (6) Chest pain Qualifiers: Chest pain type: chest pain on breathing Qualified Code(s): R07.1 - Chest pain on breathing; R07.81 - Pleurodynia (7) Hypertension Qualifiers: Hypertension type: essential hypertension Qualified Code(s): I10 - Essential (primary) hypertension
[2019-02-06] MEDS: Amiodarone Premix 360 MG/200 ML BAG IVC SCH (01:42)
[2019-02-06 03:26] LABS: Adenovirus DETECTED (Not Detect); Bordetella Pertussis Not Detected (Not Detect); Chlamydophila pneumoniae Not Detected (Not Detect); Coronavirus 229E Not Detected (Not Detect); Coronavirus HKU1 Not Detected (Not Detect); Coronavirus NL63 Not Detected (Not Detect); Coronavirus OC43 Not Detected (Not Detect); Human Metapneumovirus Not Detected (Not Detect); Human Rhinovirus/Enterovirus Not Detected (Not Detect); Influenza A Subtype 2009 H1 Not Detected (Not Detect); Influenza A Untypeable Not Detected (Not Detect); Influenza B Not Detected (Not Detect); Mycoplasma pneumoniae Not Detected (Not Detect); Parainfluenza Virus 1 Not Detected (Not Detect); Parainfluenza Virus 2 Not Detected (Not Detect); Parainfluenza Virus 3 Not Detected (Not Detect); Parainfluenza Virus 4 Not Detected (Not Detect); Respiratory Syncytial Virus Not Detected (Not Detect)
[2019-02-06 06:05] LABS: Basophils % 0.4 %; Hematocrit 50.2 % (35.3-44.9); Hemoglobin 16.2 g/dL (11.5-15.4); Immature Granulocytes % 0.8 % (0-4); Lymphocytes # 2.9 K/mcL (0.6-4.6); Lymphocytes % 34.4 %; Mean Corpuscular HGB Conc 32.3 g/dL (31.6-35.5); Mean Corpuscular Hemoglobin 30.6 pg (28.0-33.3); Mean Corpuscular Volume 94.9 fL (83.0-100.0); Mean Platelet Volume 10.4 fL (9.4-12.4); Monocytes # 0.6 K/mcL (0.0-1.3); Monocytes % 6.9 %; Neutrophils # 4.8 K/mcL (1.6-8.9); Platelet Count 198 K/mcL (140-400); Red Blood Count 5.29 M/mcL (3.82-4.97); Red Cell Distribution Width 14.8 % (11.5-14.5); Segmented Neutrophils % 57.5 %
[2019-02-06] MEDS: Doxycycline 100 MG in 0.9 % Sodium Chloride Mini Bag 100 ML IVPB SCH ×2 (06:15→17:04)
[2019-02-06] MEDS: *HR* Heparin 5,000 UNIT/ML VIAL SQ SCH ×2 (06:15→17:04)
[2019-02-06 06:21] LABS: Prothrombin Time 10.7 Seconds (9.4-12.1)
[2019-02-06 06:22] LABS: BUN/Creatinine Ratio 15 (6-26); Blood Urea Nitrogen 13 mg/dL (6-20); Calcium 8.9 mg/dL (8.6-10.3); Carbon Dioxide 28 mEq/L (23-29); Chloride 106 mEq/L (98-107); Glucose 122 mg/dL (70-105); Osmolality,Calculated 293 (280-300); Potassium 3.9 mEq/L (3.5-5.1); Sodium 141 mEq/L (136-145); eGFR For Non-African Americans > 60 (> 60)
[2019-02-06 06:55] LABS: Platelet Estimate Normal (Normal); Reactive Lymphocytes Present (Not Present)
[2019-02-06] MEDS: Insulin LISPRO 300 UNITS/3 ML VIAL SQ SCH ×4 (08:21→19:51)
[2019-02-06] MEDS: Multivit/Ca/Min/Fe/FA 1 TAB TABLET PO SCH (08:29)
[2019-02-06] MEDS: hydroCHLOROthiazide 25 MG TABLET PO SCH (08:29)
[2019-02-06] MEDS: predniSONE 20 MG TABLET PO SCH (08:29)
[2019-02-06] MEDS: lamoTRIgine 100 MG TABLET PO SCH ×2 (08:29→19:55)
[2019-02-06] MEDS: BuPROPion XL (24 HR) 150 MG TABLET PO SCH (08:29)
[2019-02-06] MEDS: Nystatin Cream 15 GM TUBE TP SCH ×4 (08:30→19:55)
--- NOTE | 2019-02-06 08:44 | Cardiology Progress Note ---
Date of Encounter: 02/06/19 Time of Encounter: 08:41 Assessment and Plan (1) Sustained VT (ventricular tachycardia) Current Visit: Yes Status: Acute single episode, asymptomatic, no HD compromise, no history, lytes ok, QTc wnl, neg trop,. TTE EF65%, no structural abn, 2016 Pharm SPECT challenging study w/o ischemia or infarct. CAD risk factors HTN, HLD, tobacco, preDM - d/c amio drip per protocol - c/w lopressor 25 bid - pharm SPECT, if evience of significant ischemia, then LHC - will need EP input (2) Chest pain Current Visit: No Status: Acute pleuritic. no ho exertional angina. Qualifiers: Chest pain type: chest pain on breathing Qualified Code(s): R07.1 - Chest pain on breathing; R07.81 - Pleurodynia (3) Acute exacerbation of chronic obstructive airways disease Current Visit: Yes Status: Acute management per primary team. (4) Depression Current Visit: Yes Status: Chronic Qualifiers: Depression Type: unspecified Qualified Code(s): F32.9 - Major depressive disorder, single episode, unspecified (5) Hyperglycemia Current Visit: Yes Status: Acute on insulin. management per primary team (6) HLD (hyperlipidemia) Current Visit: Yes Status: Chronic Qualifiers: Hyperlipidemia type: unspecified Qualified Code(s): E78.5 - Hyperlipidemia, unspecified (7) Hypertension Current Visit: No Status: Acute BP ctr ok Qualifiers: Hypertension type: essential hypertension Qualified Code(s): I10 - Es sential (primary) hypertension Discussion w patient/family: The assessment and plan as outlined above was discussed with the patient and/or family members who expressed understanding and agreement. All questions were answered. Thank you for involving us in the care of your patient. Please call with any questions. Subjective Principal diagnosis: VT Interval history: pt feels dyspnea improved, rare spastic cough, sat Ok on NC 2L. Tele no SVT or VT or pauses; occasional PACs, rare PVCs A1C 6.3. FH father ho CHF age of 40s and of age of 51, sister "HF" age of 40s, no FH of ICD/PPM. TTE [id number] EF 65%, RV nl, no valvular dysfunction, no PH. [id number] Pharm SPECT technically challenging 2-day study, no ischemia or infarct on perfusion imaging, 10/10 chest pain. EF >70% Objective Vital Signs, Last 4 Hours Temp Pulse Resp BP Pulse Ox 02/06/19 07:15 98.7 F 02/06/19 07:00 52 17 113/68 98 02/06/19 06:00 53 20 111/72 99 Other: General/Neuro: NAD, AAO, cogent HEENT: anicteric Neck: no JVD, no bruits Chest: coarse BS B/L, scattered rhonchi, no W/C Heart: RR, S1/S2, no S3/S4, no M/G/R Abdominal: soft, ND, NT Peripheral Pulses: radial pulse 2+ B/L, DP 2+ B/L Skin/Extremities: no cyanosis, no LE edema Results 02/06/19 05:31 02/06/19 05:31 Lab Results 02/05/19 02/05/19 02/05/19 10:02 10:02 13:53 WBC Hgb Hct Plt Count INR Sodium Potassium Chloride Carbon Dioxide BUN Creatinine Glucose Calcium Magnesium 2.0 Troponin I < 0.03 < 0.03 02/06/19 02/06/19 02/06/19 05:31 05:31 05:31 WBC 8.4 D Hgb 16.2 H Hct 50.2 H Plt Count 198 INR 1.0 Sodium 141 Potassium 3.9 Chloride 106 Carbon Dioxide 28 BUN 13 Creatinine 0.85 Glucose 122 H Calcium 8.9 Magnesium 2.0 Troponin I - Imaging and Cardiology Echo: report reviewed, image reviewed Other Results: Tele reviewed Consult Discharge Plan - Plan Referrals: Yfn Presley MD [Primary Care Provider] -
[2019-02-06] MEDS: Ipratropium/Albuterol Neb 3 ML IH PRN (08:51)
[2019-02-06] MEDS ORDERED: Regadenoson 0.4 MG/5 ML SYRINGE IVP ONE (10:19)
--- NOTE | 2019-02-06 16:38 | Internal Med Progress Note ---
Hospitalist Progress Note - Encounter Date of Encounter: 02/06/19 Time of Encounter: 10:00 - Subjective Interval History: Patient has no fever. Minimal dry cough. Denies dizziness. Denies chest pain/shortness of breath/palpitation. - Exam Vitals: Temp Pulse Resp BP Pulse Ox 98.2 F 63 18 118/69 96 02/06/19 15:41 02/06/19 16:00 02/06/19 15:00 02/06/19 13:00 02/06/19 15:00 Exam: Pt is AAO x 3, in NAD HEENT: NC/AT, PERRL Neck: Supple, no JVD, no LAD, no tonsil enlargement or pharyngeal erythema Lungs: CTA b/l Heart: S1S2, RRR Abd: Soft, nontender, BS present Ext: ROM wnl, no pedal edema Neuro: No focal deficit - Assessment and Plan (1) Morbid obesity Current Visit: Yes Status: Acute Assessment and Plan: Needed the lifestyle modification as outpatient (2) Acute exacerbation of chronic obstructive airways disease Current Visit: Yes Status: Acute Assessment and Plan: Patient has no wheezing or shortness of breasts when I saw her. No fever but fe els subjective fever. - Continue COPD exacerbation treatment - Continue doxycycline for possible early pneumonia as patient has a fever in ER - Flu test negative - Follow up blood culture results - Rapid strep negative - respiratory viral panel shows positive for adenovirus. (3) DVT prophylaxis Current Visit: Yes Status: Acute Assessment and Plan: Heparin SC (4) Hyperglycemia Current Visit: Yes Status: Acute Assessment and Plan: Patient was found hypoglycemia in ER. Hemoglobin A1c 6.1. Consider pre-di abetic - As patient is on steroid, will cover patient with sliding scale insulin. Will DC steroid as patient had no wheezing (5) Sustained VT (ventricular tachycardia) Current Visit: Yes Status: Acute Assessment and Plan: Etiology is undetermined. Cardiology consult appreciated. - Continue cardiac monitoring - Continue amiodarone drip - Unremarkable Echo result - Per cardiology, had stress test today, [facility] per stess test result. May need EP or ICD before discharge (6) Chest pain Current Visit: No Status: Acute Assessment and Plan: Patient is chest pain-free at this point. Troponin negative x5 (7) Hypertension Current Visit: No Status: Acute Assessment and Plan: Continue home medications (8) Fever Current Visit: Yes Status: Acute Assessment and Plan: No leukocytosis. Respiratory viral panel positive for adenovirus. Likely caused by viral infection. Fever resolved at this point. - Time Spent with Patient Total time spent is greater than 50% in coordination of care (as documented) at patient's floor/unit and/or counseling patient: 30 minutes 25 - 35 minutes Plan of Care Discussed with: patient Internal Medicine: Result - Labs CBC & Chem 7: 02/06/19 05:31 02/06/19 05:31 Labs: Short CBC 02/06/19 Range/Units 05:31 WBC 8.4 D (4.3-11.1) K/mcL Hgb 16.2 H (11.5-15.4) g/dL Hct 50.2 H (35.3-44.9) % Plt Count 198 (140-400) K/mcL Neutrophils # 4.8 (1.6-8.9) K/mcL BMP 02/06/19 05:31 Sodium 141 Potassium 3.9 Chloride 106 Carbon Dioxide 28 BUN 13 Creatinine 0.85 Glucose 122 H Calcium 8.9 - ABG Interpretation ABG results: PT/INR, D-dimer PT 10.7 Seconds (9.4-12.1) 02/06/19 05:31 Consult Discharge Plan - Plan Referrals: Yfn Presley MD [Primary Care Provider] - (6) Chest pain Qualifiers: Chest pain type: chest pain on breathing Qualified Code(s): R07.1 - Chest pain on breathing; R07.81 - Pleurodynia (7) Hypertension Qualifiers: Hypertension type: essential hypertension Qualified Code(s): I10 - Essential (primary) hypertension (8) Fever Qualifiers: Fever type: unspecified Qualified Code(s): R50.9 - Fever, unspecified
[2019-02-06] MEDS: Doxycycline 100 MG CAPSULE PO SCH (19:55)
[2019-02-07] MEDS: *HR* Heparin 5,000 UNIT/ML VIAL SQ SCH (05:53)
[2019-02-07 07:02] LABS: Basophils % 0.5 %; Eosinophils % 0.1 %; Hematocrit 47.7 % (35.3-44.9); Hemoglobin 15.4 g/dL (11.5-15.4); Immature Granulocytes % 0.8 % (0-4); Lymphocytes % 41.5 %; Mean Corpuscular HGB Conc 32.3 g/dL (31.6-35.5); Mean Corpuscular Hemoglobin 30.3 pg (28.0-33.3); Mean Corpuscular Volume 93.7 fL (83.0-100.0); Mean Platelet Volume 10.6 fL (9.4-12.4); Monocytes # 0.5 K/mcL (0.0-1.3); Monocytes % 7.4 %; Neutrophils # 3.6 K/mcL (1.6-8.9); Platelet Count 198 K/mcL (140-400); Red Blood Count 5.09 M/mcL (3.82-4.97); Red Cell Distribution Width 14.8 % (11.5-14.5); Segmented Neutrophils % 49.7 %
[2019-02-07 07:22] LABS: Prothrombin Time 11.1 Seconds (9.4-12.1)
[2019-02-07 07:24] LABS: BUN/Creatinine Ratio 18 (6-26); Blood Urea Nitrogen 13 mg/dL (6-20); Carbon Dioxide 27 mEq/L (23-29); Chloride 103 mEq/L (98-107); Glucose 91 mg/dL (70-105); Potassium 3.8 mEq/L (3.5-5.1); Sodium 138 mEq/L (136-145); eGFR For Non-African Americans > 60 (> 60)
[2019-02-07 07:25] LABS: Calcium 8.5 mg/dL (8.6-10.3); Osmolality,Calculated 286 (280-300)
[2019-02-07 07:31] LABS: Platelet Estimate Normal (Normal)
[2019-02-07] MEDS: Doxycycline 100 MG CAPSULE PO SCH (07:55)
[2019-02-07] MEDS: Insulin LISPRO 300 UNITS/3 ML VIAL SQ SCH ×2 (07:55→12:12)
[2019-02-07] MEDS: BuPROPion XL (24 HR) 150 MG TABLET PO SCH (07:55)
[2019-02-07] MEDS: Multivit/Ca/Min/Fe/FA 1 TAB TABLET PO SCH (07:55)
[2019-02-07] MEDS: hydroCHLOROthiazide 25 MG TABLET PO SCH (07:56)
[2019-02-07] MEDS: lamoTRIgine 100 MG TABLET PO SCH (07:57)
[2019-02-07] MEDS: Nystatin Cream 15 GM TUBE TP SCH ×2 (07:58→13:15)
[2019-02-07 12:14] VITALS: BP 129/85
--- NOTE | 2019-02-07 13:23 | Event Note ---
Date of Encounter: 02/07/19 Time of Encounter: 13:22 - Cardiology Event Note ER telemetry strips reviewed with Dr.John Sim and noted to be artifact. No ventricular tachycardia noted. TTE with LVEF preserved, no wall motion abnormalities. Stress test negative. EP/Cardiology will sign off.
--- NOTE | 2019-02-07 14:14 | Discharge Summary ---
- NOTES TO OUTPATIENT PROVIDER Notes to Outpatient Provider: Hemoglobin A1c 6.3. Please close monitor glucose level and hemoglobin A1c in the future Orders not resulted at time of discharge: Pending orders 02/04/19 19:27 Culture,Blood [BC] Stat 02/06/19 09:44 NM anai perf SPECT multi [NM] Routine Date of Encounter: 02/07/19 Time of Encounter: 13:00 - Discharge Diagnosis (1) Morbid obesity Priority: Secondary Status: Acute (2) Acute exacerbation of chronic obstructive airways disease Priority: Primary Status: Acute (3) DVT prophylaxis Priority: Secondary Status: Acute (4) Hyperglycemia Priority: Secondary Status: Acute (5) Sustained VT (ventricular tachycardia) Priority: Primary Status: Acute (6) Chest pain Priority: Secondary Status: Acute Qualifiers: Chest pain type: chest pain on breathing Qualified Code(s): R07.1 - Chest pain on breathing; R07.81 - Pleurodynia (7) Hypertension Priority: Secondary Status: Acute Qualifiers: Hypertension type: essential hypertension Qualified Code(s): I10 - Essential (primary) hypertension (8) Fever Priority: Primary Status: Acute Qualifiers: Fever type: unspecified Qualified Code(s): R50.9 - Fever, unspecified Hospital course: Ms. Munoz is a 48 year old female present to ER for fever. Patient also has mild cough and sore throat. Chest x-ray negative. However, patient was suspected V. tach in the cardiac monitoring. Cardiology consult saw patient, echo and stress test unremarkable. EP consult saw patient, consider the suspected V. tach is artifact. No further treatment needed per EP consult. Patient was treated with antibiotic for possible URI, respiratory viral panel shows adenovirus positive. After treatment, patient has no further fever, no shortness of breath or cough. Sore throat resolved. Patient had rapid strep test which was negative. I have seen and examined the patient today. Patient has no fever. Denies shortness of breath or cough. Vitals are stable. We will DC patient home today. Patient has high random glucose level. Hemoglobin A1c 6.3. Consider prediabetic. Continue diet control and lifestyle modification as outpatient. Discharge discussed with: patient - Time Spent with Patient Total time spent providing and/or coordinating discharge services: 40 minutes Time spent: Greater than 30 minutes - Discharge Medications Prescriptions: New Doxycycline 100 mg PO BID 3 Days #6 capsule Continue Multivitamin [Flintstones] 1 tab PO QAM lamoTRIgine [Lamictal] 150 mg PO BID BuPROPion XL (24 HR) [Wellbutrin Xl] 450 mg PO QAM Aripiprazole [Abilify] 15 mg PO DAILY hydroCHLOROthiazide [Hydrochlorothiazide] 25 mg PO DAILY traZODone [TraZODone] 50 mg PO HS PRN PRN Reason: Insomnia Albuterol Sulfate [Albuterol Inhaler] 2 puff IH Q4HR PRN PRN Reason: Shortness Of Breath Levalbuterol Neb [Xopenex Neb] 1.25 mg IH Q8H PRN PRN Reason: shortess of breath Mometasone/Formoterol [Dulera 200 Mcg/5 Mcg Inhaler] 2 puff IH BID Umeclidinium [place] [Incruse Ellipta] 62.5 mcg IH DAILY Home Medications: Multivitamin [Flintstones] 1 tab PO QAM 07/08/15 [History] lamoTRIgine [Lamictal] 150 mg PO BID 06/15/16 [History] BuPROPion XL (24 HR) [Wellbutrin Xl] 450 mg PO QAM 09/14/16 [History] Albuterol Sulfate [Albuterol Inhaler] 2 puff IH Q4HR PRN 02/05/19 [History] Aripiprazole [Abilify] 15 mg PO DAILY 02/05/19 [History] Levalbuterol Neb [Xopenex Neb] 1.25 mg IH Q8H PRN 02/05/19 [History] Mometasone/Formoterol [Dulera 200 Mcg/5 Mcg Inhaler] 2 puff IH BID 02/05/19 [History] Umeclidinium [place] [Incruse Ellipta] 62.5 mcg IH DAILY 02/05/19 [History] hydroCHLOROthiazide [Hydrochlorothiazide] 25 mg PO DAILY 02/05/19 [History] traZODone [TraZODone] 50 mg PO HS PRN 02/05/19 [History] Doxycycline 100 mg PO BID 3 Days #6 capsule 02/07/19 [Rx] Allergies/Adverse Reactions: Allergy/AdvReac Type Severity Reaction Status Date / Time No Known Allergies Allergy Verified 02/05/19 11:41 Date of admission: 02/05/19 11:32 Primary care physician: Yfn Presley MD Consults: 02/05/19 01:23 Consult to Cardiology [CONS] Routine Comment: Consulting Provider: [facility] [place] Reason for Consult: vtach Call Completed: No 02/07/19 08:43 Consult to Electrophysiology (EP) [CONS] Routine Consulting Provider: Electrophys[facility] [place] Reason for Consult: VT Call Completed: Yes Discharging clinician: Ji Oconnor Anticipated date of discharge: 02/07/19 - Constitutional Vitals: Temp Pulse Resp BP Pulse Ox 97.7 F 67 17 129/85 93 02/07/19 12:07 02/07/19 12:07 02/07/19 12:07 02/07/19 12:07 02/07/19 07:55 General appearance: Present: A&O X 3, no acute distress Exam: Pt is AAO x 3, in NAD HEENT: NC/AT, PERRL Neck: Supple, no JVD, no LAD, no tonsil enlargement or pharyngeal erythema Lungs: CTA b/l Heart: S1S2, RRR Abd: Soft, nontender, BS present Ext: ROM wnl, no pedal edema Neuro: No focal deficit - Patient Status Disposition: Home, Self-Care Condition: Good Functional capacity at discharge: independent ambulation Overall status at discharge: patient is back to baseline - Discharge Instructions Instructions: Chest Pain (DC), Chronic Obstructive Pulmonary Disease (DC), Chronic Hypertension (DC) Follow Up With: Yfn Presley MD [Primary Care Provider] - - Diet and Activity Activity: increase activity as tolerated Diet: diabetic diet
== END 2019-02-07 14:42 | disposition home or self-care (01) | DRG 191 ==
LOC: EMEROOARM 18:44 → ICNU 18:44 → 2NENU 02-07 11:27
PROVIDERS: ADMIT Internal Medicine; ATTEND Internal Medicine